=== PATIENT | female | born 1960 | race Caucasian/White ===

== ENCOUNTER 2018-08-16 10:16 | Emergency (ER) | payer BC ==
[2018-08-16 10:45] VITALS: TEMP 98.6; BMI 29.7
[2018-08-16 10:49] LABS: PH,URINE 5.5 (4.5-8); URINE APPEARANCE Slightly; URINE BILIRUBIN 3+ (NEGATIVE); URINE COLOR Red; URINE GLUCOSE (UA) Negative (NEGATIVE); URINE KETONE 1+ (NEGATIVE); URINE LEUK ESTERASE 3+ (NEGATIVE); URINE NITRITE Positive (NEGATIVE); URINE PROTEIN 3+ (NEGATIVE)
--- NOTE | 2018-08-16 10:53 | PDOC ---
History of Present Illness - General Chief Complaint: Urinary Problem Stated Complaint: POSSIBLE REOCCURRANCE OF UTI BLOOD IN URINE History Source: Patient Exam Limitations: No Limitations - History of Present Illness Initial Comments: 08/16/18 10:47 58 yo F with h/o instertitial cystitis, chronic, and fibromyalgia here for complaints of pelvic pain. pulling sensation. states she has been followed by DR Carlson for cystitis in the past. most recently 07/25 ad evaluation with renal us and bladder us which were normal, was treated with abx for uti. today noted blood in toilet bowel after urinating. denies n/v no f/c unsure if vaginal or urine bleeding. no knwon h/o ovarian cyst. denies rectal bleeding. now pain radiating to upper thighs. Past History - Past Medical History Allergies/Adverse Reactions: Allergies Allergy/AdvReac Type Severity Reaction Status Date / Time mold Allergy Verified 08/16/18 10:18 perfume Allergy Verified 08/16/18 10:18 Home Medications: Ambulatory Orders Topiramate [Topamax] 100 mg PO BID 09/17/16 Buprenorphine 1 each TD ASDIR 08/16/18 Meclizine HCl [Antivert -] 25 mg PO TID PRN #21 tablet MDD 3 08/16/18 Meloxicam [Mobic] 7.5 mg PO DAILY 08/16/18 Montelukast Na [Singulair -] 5 mg PO HS 08/16/18 Sulfamethoxazole/Trimethoprim [Bactrim Ds -] 1 tab PO BID #14 tablet 08/16/18 Anemia: No Asthma: No Cancer: No Cardiac Disorders: No CVA: No COPD: No CHF: No Dementia: No Diabetes: No GI Disorders: No Disorders: Yes (Interstitial Cystitis) HTN: No Hypercholesterolemia: No Liver Disease: No Seizures: No Thyroid Disease: No Other medical history: FIBROMYAGLIA - Surgical History Abdominal Surgery: Yes (Abdominoplasty) Appendectomy: No Cardiac Surgery: No Cholecystectomy: No Lung Surgery: No Neurologic Surgery: No Orthopedic Surgery: No - Suicide/Smoking/Psychosocial Hx Smoking Status: No Smoking History: Never smoked Have you smoked in the past 12 months: No Number of Cigarettes Smoked Daily: 0 Information on smoking cessation initiated: No Hx Alcohol Use: No Drug/Substance Use Hx: No Substance Use Type: None Hx Substance Use Treatment: No Review of Systems - Review of Systems Constitutional: No: Chills, Diaphoresis, Fever Respiratory: No: Cough, Orthopnea Cardiac (ROS): No: Chest Pain ABD/GI: No: Nausea, Vomiting : Yes: Frequency, Hematuria, Other Musculoskeletal: Yes: Muscle Pain. No: Back Pain, Gout Integumentary: No: Bruising, Change in Color Neurological: No: Headache, Numbness, Paresthesia All Other Systems: Reviewed and Negative *Physical Exam - Vital Signs Last Vital Signs Temp Pulse Resp BP Pulse Ox 98.6 F 72 16 130/76 96 08/16/18 10:17 08/16/18 10:17 08/16/18 10:17 08/16/18 10:17 08/16/18 10:17 - Physical Exam Comments: 08/16/18 10:52 awake alert lungs clear bilaterally heart rrr no mrg abd soft mild llq ttp no rebound no guarding. no cva tenderness. ext wwp. skin warm and dry. ED Treatment Course - LABORATORY CBC & Chemistry Diagram: 08/16/18 11:45 08/16/18 11:45 - ADDITIONAL ORDERS Additional order review: Laboratory Results 08/16/18 10:25 Urine Color Not Urine Appearance Not Medical Decision Making - Medical Decision Making 08/16/18 10:52 58 yo F with h/o fibromyalgia, cystitis here with c/o pelvic pain. ttp on llq. plan pelvic exam, eval for vaginal vs. urethral bleeding. possible ct a/p differential renal colic, pyleo vs. uti or chronic cystitis. ovarian pathology. 08/16/18 11:10 pelvic exam with scan dc from cervical os, trace blood on swab when cervical swab. plan ct a/p eval for endometrial pathology, ovarian pathology, diverticulitis. labs cbc cmp. ua pending. 08/16/18 11:11 pt also c/o vertigo. states she has seen an ENT. describes vertigo like symptoms worse wtih turning head back and to the right. worse wtih rolling over in bed, and turning too quickly. no n/v no gait instability currently. on exam nuero pt strength 5/5 all four ext, finger to nose normal, alt hand movement normal. neg romberg, gait normal. normal cerebellar exam. will treat with meclizine. po . *DC/Admit/Observation/Transfer Diagnosis at time of Disposition: Positional vertigo, Vaginal bleeding, UTI (urinary tract infection) - Discharge Dispostion Disposition: HOME Condition at time of disposition: Improved - Prescriptions Prescriptions: Meclizine HCl [Antivert -] 25 mg PO TID PRN #21 tablet MDD 3 PRN Reason: Vertigo Sulfamethoxazole/Trimethoprim [Bactrim Ds -] 1 tab PO BID #14 tablet - Referrals Referrals: Jim Cornell MD [Staff Physician] - Sushant Plunkett MD [Staff Physician] - Leodan Ross MD [Staff Physician] - - Patient Instructions Printed Discharge Instructions: Postmenopausal Bleeding, Benign Paroxysmal Positional Vertigo, Constipation Additional Instructions: your labs are noted for a urinary tract infection. you should take bactrim twice daily x one week. follow up with dr. Carlson next saturday. call saturday to confirm appointment. you also have some irregular vaginal bleedig. you need to have a evaluation with a compensation manager as this is concerning for endometrial cancer after menopause. please see referral information for Dr Escobedo ORDER DEPARTMENT SUPERVISOR an call to schedule. return for any problems or concerns .you have large constipation/ stool on your ct scan of your abdomen and pelvis. you need to take stool softner such as miralax up to three times daily as directed for constipation. please follow up with a ticket puller see referral infomration for dr leodan ross. please call to schedule. - Post Discharge Activity
[2018-08-16] MEDS ORDERED: MECLIZINE HCL 25 MG TABLET (FP) PO ONE (11:10)
[2018-08-16] MEDS ORDERED: SODIUM CHLORIDE 0.9% 1000 ML INFUS.BAG IV ONE (11:10)
[2018-08-16] MEDS ORDERED: MECLIZINE HCL 25 MG TABLET (FP) ONE (11:49)
[2018-08-16 11:52] LABS: BASO % 0.6 % (0-2.0); EOS % 1.7 % (0-4.5); HEMATOCRIT 38.3 % (32.4-45.2); HEMOGLOBIN 12.9 GM/dl (10.7-15.3); LYMPH % 17.9 % (8-40); MCH 30.3 pg (25.7-33.7); MCHC 33.7 g/dl (32.0-36.0); MEAN CELL VOLUME 89.8 fl (80-96); MEAN PLT VOLUME 8.8 fl (7.5-11.1); MONO % 7.2 % (3.8-10.2); NEUT % 72.6 % (42.8-82.8); PLATELET COUNT 199 K/MM3 (134-434); RBC 4.26 M/mm3 (3.60-5.2); RDW 12.6 % (11.6-15.6); WHITE BLOOD COUNT 7.4 K/mm3 (4.0-10.8)
[2018-08-16 12:09] LABS: ALBUMIN 3.9 g/dl (3.5-5.0); ALK PHOS 51 U/L (32-92); ANION GAP 7 MMOL/L (8-16); BILIRUBIN,TOTAL 0.5 mg/dl (0.2-1.0); BLOOD UREA NITROGEN 29 mg/dl (7-18); CALCIUM 8.8 mg/dl (8.4-10.2); CHLORIDE 106 mmol/L (98-107); CO2 27 mmol/L (22-28); CREATININE 0.8 mg/dl (0.6-1.3); GLUCOSE,RANDOM 86 mg/dl (74-106); POTASSIUM 3.4 mmol/L (3.5-5.1); SGOT/AST 19 U/L (10-42); SGPT/ALT 18 U/L (10-40); SODIUM 140 mmol/L (136-145); TOT PROT 6.3 g/dl (6.4-8.3)
[2018-08-16 14:38] VITALS: BP 132/80; PULSE 64
[2018-08-16] MEDS ORDERED: SULFAMETHOXAZOLE/TRIMETHOPRIM 800MG/160MG D.S. TABLET PO ONE (15:00)
[2018-08-16] MEDS ORDERED: SULFAMETHOXAZOLE/TRIMETHOPRIM 800MG/160MG D.S. TABLET ONE (15:05)
[2018-08-16 15:41] LABS: EPI CELLS FEW /HPF; URINE RBC >100 /hpf (0-3); URINE WBC 60-100 (0-5)
== END 2018-08-16 15:15 | disposition home or self-care (01) ==
LOC: FER 10:16
PROC: 3E0337Z Introduction of Electrolytic and Water Balance Substance into Peripheral Vein, Percutaneous Approach (ICD-10-PCS; principal; 2018-08-16)
DX: H81.10 Benign paroxysmal vertigo, unspecified ear (principal); N39.0 Urinary tract infection, site not specified; M79.7 Fibromyalgia
CPT/HCPCS: 36415; 74177-TC; 80053; 81003; 81015; 85025; 87086; 99282-25; J7030

== ENCOUNTER 2019-04-02 21:08 | Emergency (ER) | payer BC | END 2019-04-02 22:21 | disposition home or self-care (01) | LOC: FER 21:08 ==

== ENCOUNTER 2019-08-25 20:46 | Emergency (ER) | payer BC, OTHER ==
[2019-08-25 21:04] VITALS: PULSE 72; TEMP 98.1; BMI 25.8
[2019-08-25] MEDS ORDERED: METOCLOPRAMIDE HCL INJECTION 10 MG/2 ML VIAL IVPB ONE (22:06)
[2019-08-25] MEDS ORDERED: METOCLOPRAMIDE HCL INJECTION 10 MG/2 ML VIAL ONE (22:22)
[2019-08-26 00:11] VITALS: BP 139/90
--- NOTE | 2019-08-26 00:36 | PDOC ---
Documentation entered by Joseph Eubanks SCRIBE, acting as scribe for Beverly Howell MD. Beverly Howell MD: This documentation has been prepared by the Raimundo dupont Aiswarya, SCRIBE, under my direction and personally reviewed by me in its entirety. I confirm that the documentation accurately reflects all work, treatment, procedures, and medical decision making performed by me. History of Present Illness - General Chief Complaint: Migraine Headache Stated Complaint: MIGRAINE Time Seen by Provider: 08/25/19 20:48 History Source: Patient Exam Limitations: No Limitations - History of Present Illness Initial Comments: 08/25/19 22:34 The patient is a 59 year old female, with a significant PMH of interstitial cystitis and migraines, who presents to the emergency department with a migraine that began today. The patient states her migraine episodes are usually triggered by fragrance. 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 The patient states she endorses associated symptoms of headache, burning/stiff neck pain, heart palpitations, ear and sinus pain. She mentions she goes to pain management at [facility]. The patient denies chest pain, shortness of breath, and dizziness.Denies fever, chills, nausea, vomiting, diarrhea and constipation.Denies dysuria, frequency, urgency and hematuria. Allergies: NKDA Past surgical history: abdominoplasty Social history: None reported PCP: None reported Past History - Past Medical History Allergies/Adverse Reactions: Allergies Allergy/AdvReac Type Severity Reaction Status Date / Time mold Allergy Verified 08/25/19 20:47 No Known Drug Allergies Allergy Verified 08/25/19 20:47 perfume Allergy Verified 08/25/19 20:47 Home Medications: Ambulatory Orders Buprenorphine [Butrans 15 MCG/HR] 1 each TD WEEKLY 04/02/19 Eletriptan HBr [Relpax] 40 mg PO PRN PRN 04/02/19 Galcanezumab-Gnlm [Emgality] 120 mg SQ MONTHLY 08/25/19 Anemia: No Asthma: No Cancer: No Cardiac Disorders: No CVA: No COPD: No CHF: No Dementia: No Diabetes: No GI Disorders: No Disorders: Yes (Interstitial Cystitis) HTN: No Hypercholesterolemia: No Liver Disease: No Seizures: No Thyroid Disease: No Other medical history: MIGRAINES - Surgical History Abdominal Surgery: Yes (Abdominoplasty) Appendectomy: No Cardiac Surgery: No Cholecystectomy: No Lung Surgery: No Neurologic Surgery: No Orthopedic Surgery: No - Psycho Social/Smoking Cessation Hx Smoking Status: No Smoking History: Never smoked Have you smoked in the past 12 months: No Number of Cigarettes Smoked Daily: 0 Information on smoking cessation initiated: No Hx Alcohol Use: No Drug/Substance Use Hx: No Substance Use Type: None Hx Substance Use Treatment: No Review of Systems - Review of Systems Able to Perform ROS?: Yes Comments:: 08/25/19 22:34 GENERAL/CONSTITUTIONAL: No fever or chills. No weakness. HEAD, EYES, EARS, NOSE AND THROAT: +nasal pain. +ear pain. +neck pain. No change in vision. CARDIOVASCULAR: No chest pain or shortness of breath. RESPIRATORY: No cough, wheezing, or hemoptysis. GASTROINTESTINAL: No nausea, vomiting, diarrhea or constipation. GENITOURINARY: No dysuria, frequency, or change in urination. MUSCULOSKELETAL: No joint or muscle swelling or pain. No neck or back pain. SKIN: No rash NEUROLOGIC: +migraine. No vertigo, loss of consciousness, or change in strength/ sensation. ENDOCRINE: No increased thirst. No abnormal weight change. HEMATOLOGIC/LYMPHATIC: No anemia, easy bleeding, or history of blood clots. ALLERGIC/IMMUNOLOGIC: No hives or skin allergy. *Physical Exam - Vital Signs Last Vital Signs Temp Pulse Resp BP Pulse Ox 98.1 F 72 16 143/99 96 08/25/19 20:58 08/25/19 20:58 08/25/19 20:58 08/25/19 20:58 08/25/19 20:58 - Physical Exam Comments: 08/25/19 22:36 GENERAL: Awake, alert, and fully oriented, in no acute distress HEAD: No signs of trauma EYES: PERRLA, EOMI, sclera anicteric, conjunctiva clear ENT: Auricles normal inspection, hearing grossly normal, nares patent, oropharynx clear without exudates. Moist mucosa NEUROLOGICAL: Cranial nerves II through XII grossly intact. Normal speech, normal gait SKIN: Warm, Dry, normal turgor, no rashes or lesions noted. ED Treatment Course - Medications Given in the ED: ED Medications Discontinued Medications Generic Name Dose Route Start Last Admin Trade Name Matthieu PRN Reason Stop Dose Admin Diphenhydramine HCl 25 mg 08/25/19 22:07 08/25/19 22:30 Benadryl Injection - IVPUSH 08/25/19 22:08 25 mg ONCE ONE Administration Metoclopramide HCl 10 mg 08/25/19 22:06 08/25/19 22:29 Reglan Injection - IVPB 08/25/19 22:07 10 mg ONCE ONE Administration Medical Decision Making - Medical Decision Making As noted above, this 59-year-old woman with a history of chronic migraine headache presents with several hour history of headache pain typical of her usual migraine but persisting despite taking her triptan medication. 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 Exam as noted. Since no atypical symptoms or trauma are associated with this episode of persistent migraine headache, CT imaging deferred. IV access obtained and metoclopramide 10 mg IV/Benadryl 25 mg IV administered. After 2 hours of observation, patient is awake and alert with marked relief in her headache pain. No new symptoms have developed. The patient will be discharged with instructions to rest (no work tomorrow), drink plenty of water and use headache medications as needed. If she has any persistence of her headache pain or develops nausea/vomiting/lightheadedness or other new symptoms, she should return to the ER. Follow-up with the [facility] Headache clinic should be on August 31 Discharge - Discharge Information Problems reviewed: Yes Clinical Impression/Diagnosis: Migraine Qualifiers: Migraine type: without aura Status migrainosus presence: with status migrainosus Intractability: not intractable Qualified Code(s): G43.001 - Migraine without aura, not intractable, with status migrainosus Condition: Stable Disposition: HOME - Follow up/Referral - Patient Discharge Instructions Patient Printed Discharge Instructions: Migraine -- Adult Additional Instructions: rest;plenty of fluids continue medications as prescribed Follow-up at [facility] headache practice on August 31 as discussed Return to ER if you have persisting, severe headache or vomiting - Post Discharge Activity Work/Back to School Note: Back to Work
== END 2019-08-26 00:14 | disposition home or self-care (01) ==
LOC: FER 20:46
PROC: 3E033GC Introduction of Other Therapeutic Substance into Peripheral Vein, Percutaneous Approach (ICD-10-PCS; principal; 2019-08-25)
DX: G43.001 Migraine without aura, not intractable, with status migrainosus (principal); Z91.048 Other nonmedicinal substance allergy status; N30.10 Interstitial cystitis (chronic) without hematuria
CPT/HCPCS: 99281-25

== ENCOUNTER 2020-12-08 13:58 | Emergency (ER) | payer BC, OTHER ==
[2020-12-08 14:05] VITALS: BP 126/87; PULSE 76; TEMP 99.1; BMI 26.6
[2020-12-08] MEDS ORDERED: METOCLOPRAMIDE HCL INJECTION 10 MG/2 ML VIAL IVPUSH ONE (15:13)
[2020-12-08] MEDS ORDERED: LACTATED RINGERS SOLUTION 1000 ML INFUS.BAG IV ONE (15:14)
[2020-12-08] MEDS ORDERED: METOCLOPRAMIDE HCL INJECTION 10 MG/2 ML VIAL ONE (15:22)
[2020-12-08] MEDS ORDERED: LIDOCAINE HCL 2% (20ML MULTI-DOSE VIAL) ONE (15:24)
[2020-12-08] MEDS ORDERED: LIDOCAINE HCL 2% (50ML VIAL) NR ONE (15:27)
[2020-12-08] MEDS ORDERED: ACETAMINOPHEN 325 MG TABLET (FP) PO ONE (15:27)
[2020-12-08] MEDS ORDERED: ACETAMINOPHEN 325 MG TABLET (FP) ONE (15:43)
[2020-12-08] MEDS ORDERED: KETOROLAC TROMETHAMINE 15 MG/ML VIAL IVPUSH ONE (17:20)
[2020-12-08] MEDS ORDERED: LIDOCAINE 5% TOPICAL PATCH TP ONE (17:20)
[2020-12-08] MEDS ORDERED: KETOROLAC TROMETHAMINE 15 MG/ML VIAL ONE (17:28)
[2020-12-08] MEDS ORDERED: LIDOCAINE 5% TOPICAL PATCH ONE (17:29)
[2020-12-08] MEDS ORDERED: LIDOCAINE PATCH REMOVAL MC SCH (22:00)
== END 2020-12-08 17:40 | disposition home or self-care (01) ==
LOC: FER 13:58
PROC: 3E0333Z Introduction of Anti-inflammatory into Peripheral Vein, Percutaneous Approach (ICD-10-PCS; principal; 2020-12-08)
PROC: 3E033GC Introduction of Other Therapeutic Substance into Peripheral Vein, Percutaneous Approach (ICD-10-PCS; 2020-12-08)
DX: M54.2 Cervicalgia (principal); R51.9 Headache, unspecified
CPT/HCPCS: 99284-25

== ENCOUNTER 2021-08-07 09:53 | Day surgery (SDC) | payer BC ==
[2021-08-03 13:15] VITALS: BMI 27.3
[2021-08-07] MEDS ORDERED: LIDOCAINE HCL/PF 2% SDV 5ML VIAL ONE (10:08)
[2021-08-07] MEDS ORDERED: PROPOFOL 20 ML ONE ×3 (10:08)
[2021-08-07 11:02] VITALS: TEMP 97.8
[2021-08-07 11:28] VITALS: BP 128/71; PULSE 67
== END 2021-08-07 11:30 | disposition home or self-care (01) ==
LOC: FASU-ENDO 09:53
PROVIDERS: ATTEND Internal Medicine Gastroenterology
PROC: 0DJD8ZZ Inspection of Lower Intestinal Tract, Via Natural or Artificial Opening Endoscopic (ICD-10-PCS; principal; 2021-08-07 10:27)
DX: Z86.010 Personal history of colon polyps (principal); Z80.0 Family history of malignant neoplasm of digestive organs; R19.5 Other fecal abnormalities

== ENCOUNTER 2021-08-28 08:13 | Day surgery (SDC) | payer BC ==
[2021-08-24 15:28] VITALS: BMI 27.3
[2021-08-28 09:59] VITALS: TEMP 97.5
[2021-08-28 10:15] VITALS: BP 139/84; PULSE 64
== END 2021-08-28 10:20 | disposition home or self-care (01) ==
LOC: FASU-ENDO 08:13
PROVIDERS: ATTEND Internal Medicine Gastroenterology
PROC: 0DJD8ZZ Inspection of Lower Intestinal Tract, Via Natural or Artificial Opening Endoscopic (ICD-10-PCS; principal; 2021-08-28 09:08)
DX: Z86.010 Personal history of colon polyps (principal); Z80.0 Family history of malignant neoplasm of digestive organs; Z83.71 Family history of colonic polyps

== ENCOUNTER 2022-04-07 20:49 | Emergency (ER) | payer BC ==
[2022-04-07 21:05] VITALS: BP 123/96; PULSE 74; TEMP 97.9; BMI 27.3
[2022-04-07] MEDS ORDERED: DIPHTH,PERTUSS(ACELL),TET 0.5 ML DISP.SYRIN IM ONE ×2 (21:20→21:22)
== END 2022-04-07 21:31 | disposition home or self-care (01) ==
LOC: FER 20:49
PROC: 3E0234Z Introduction of Serum, Toxoid and Vaccine into Muscle, Percutaneous Approach (ICD-10-PCS; principal; 2022-04-07)
DX: S61.411A Laceration without foreign body of right hand, initial encounter (principal); W26.8XXA Contact with other sharp object(s), not elsewhere classified, initial encounter
CPT/HCPCS: 90715; 99284-25

== ENCOUNTER → 2022-07-13 | Day surgery (SDC) | payer BC ==
[2022-07-10 17:40] VITALS: BMI 26.6
[~2022-07-13] MED LIST: ACETAMINOPHEN 1000 MG/100 ML BAG IVPB ONE; ACETAMINOPHEN INJECTION 100 ML IVPB ONE; KETOROLAC TROMETHAMINE 30 MG/1 ML VIAL ONE; LACTATED RINGERS SOLUTION 1,000 ML IV SCH; LIDOCAINE HCL/PF 2% SDV 5ML VIAL ONE; MIDAZOLAM HCL 2 MG/2 ML SINGLE DOSE VIAL ONE; ONDANSETRON 4 MG/2 ML VIAL IVPUSH PRN; PROPOFOL 20 ML ONE; ceFAZolin SODIUM 1 GM VIAL IVPB ONE; ceFAZolin SODIUM 1 GM VIAL ONE; oxyCODONE HCL 5 MG TABLET PO PRN
[2022-07-13 11:06] VITALS: RESP 20
[2022-07-13 12:27] VITALS: BP 134/80; PULSE 62; TEMP 97
== END | disposition home or self-care (01) ==
LOC: JASU-SURG 04:52
PROVIDERS: ATTEND Urology
PROC: 0T7B8ZZ Dilation of Bladder, Via Natural or Artificial Opening Endoscopic (ICD-10-PCS; principal; 2022-07-13 08:30)
PROC: 3E0K8GC Introduction of Other Therapeutic Substance into Genitourinary Tract, Via Natural or Artificial Opening Endoscopic (ICD-10-PCS; 2022-07-13 08:30)
DX: N30.10 Interstitial cystitis (chronic) without hematuria (principal); N36.42 Intrinsic sphincter deficiency (ISD); N39.3 Stress incontinence (female) (male)
CPT/HCPCS: 51715; 52260; L8606; 94760; C1713